=== PATIENT | male | born 1945 | race Caucasian/White ===

== ENCOUNTER 2020-03-04 02:10 | Inpatient (IN) | payer OTHER ==
[2020-03-04] VITALS (8 sets, daily range): BP systolic 120–151; BP diastolic 75–93
[~2020-03-04] VITALS: Ht 180.3 cm; Wt 89.0 kg
[~2020-03-04 02:10] MED LIST: ASPIRIN CHILDRE81 MG PO; COREG6.25 MG PO; GLUCOPHAGE500 MG PO; LISINOPRIL5 MG PO; NO DAILY MEDS; PRINIVIL2.5 MG PO
[2020-03-04 03:30] LABS: HEMATOCRIT 46.1 % (42.0-52.0); LYMPH # 0.5 10*3/uL (1.3-4.4); LYMPH % 7.3 % (27.0-41.0); MEAN CELL VOLUME 87.6 fl (80.0-94.0); MEAN CORPUSCULAR HGB CONC 34.3 g/dl (33.0-37.0); MEAN PLATELET VOLUME 9.5 fl (9.6-12.3); MONO # 0.4 10*3/uL (0.1-1.0); MONO % 6.8 % (3.0-9.0); NEUT # 5.3 10*3/uL (2.3-7.9); NEUT % 85.6 % (47.0-73.0); PLATELET COUNT AUTOMATED 129 10*3/uL (130-400); RED BLOOD COUNT 5.26 10*6/uL (4.50-5.90); RED CELL DISTRI WIDTH 13.1 % (0-14.5); WHITE BLOOD COUNT 6.2 10*3/uL (4.8-10.8)
[2020-03-04 03:50] LABS: ALBUMIN 3.7 gm/dl (3.1-4.5); CREATININE 1.41 mg/dL (0.70-1.30); POTASSIUM 4.2 mmol/L (3.5-5.1); TOTAL PROTEIN 7.7 gm/dL (6.4-8.2)
[2020-03-04 04:54] LABS: BILIRUBIN Negative (Negative); BLOOD 3+ (Negative); CLARITY Clear (Clear); COLOR Yellow (Yellow); GLUCOSE 3+ (Negative); KETONE 2+ (Negative); LEUKO ESTERASE Negative (Negative); NITRITE Negative (Negative); SPECIFIC GRAVITY >= 1.030 (1.001-1.030)
[2020-03-04 05:09] LABS: BACTERIA 1+
[2020-03-04 09:35] LABS: ABG BASE EXCESS -0.2 mmol/L (-2.0-2.0); ARTERIAL BLOOD GAS PH 7.481 (7.35-7.45)
[2020-03-05] VITALS: BP 128/85
[2020-03-05 05:51] LABS: ALBUMIN 3.3 gm/dl (3.1-4.5); ALKALINE PHOSPHATASE 82 U/L (45-117); BUN 21 mg/dl (7-24); CHLORIDE 101 mmol/L (98-107); CHOLESTEROL 101 mg/dL (<200); CREATININE 1.03 mg/dL (0.70-1.30); HDL CHOLESTEROL 38 mg/dl (40-60); LDH 332 U/L (87-241); LDL CHOLESTEROL 44 mg/dL (9-159); POTASSIUM 4.3 mmol/L (3.5-5.1); SGOT/AST 83 IU/L (3-35); SGPT/ALT 49 U/L (12-78); SODIUM 132 mmol/L (136-145); TOTAL PROTEIN 7.1 gm/dL (6.4-8.2); TRIGLYCERIDES 96 mg/dl (<150); VLDL CHOLESTEROL 19 mg/dL (6-40)
[2020-03-05 06:03] LABS: CPK 2414 U/L (39-308)
[2020-03-05 06:08] LABS: LYMPH # 0.6 10*3/uL (1.3-4.4); LYMPH % 10.8 % (27.0-41.0); MEAN CELL VOLUME 88.7 fl (80.0-94.0); MEAN CORPUSCULAR HGB 30.2 pg (27.0-31.0); MEAN CORPUSCULAR HGB CONC 34.1 g/dl (33.0-37.0); MEAN PLATELET VOLUME 9.5 fl (9.6-12.3); MONO # 0.4 10*3/uL (0.1-1.0); MONO % 7.3 % (3.0-9.0); NEUT # 4.6 10*3/uL (2.3-7.9); NEUT % 81.5 % (47.0-73.0); PLATELET COUNT AUTOMATED 130 10*3/uL (130-400); RED BLOOD COUNT 4.96 10*6/uL (4.50-5.90); RED CELL DISTRI WIDTH 13.2 % (0-14.5); WHITE BLOOD COUNT 5.6 10*3/uL (4.8-10.8)
[2020-03-05 07:06] LABS: VITAMIN D, 25-HYDROXY 49.3 ng/mL (30-100)
[2020-03-05 07:07] LABS: FERRITIN 382.4 ng/mL (22.0-322.0)
[2020-03-05 08:00] VITALS: BP 153/80
[2020-03-05 16:00] VITALS: BP 142/73
[2020-03-05 20:00] VITALS: BP 145/89
[2020-03-06] VITALS: BP 146/82
[2020-03-06 03:08] LABS: ABG BASE EXCESS 0.6 mmol/L (-2.0-2.0); ARTERIAL BLOOD GAS PH 7.509 (7.35-7.45)
[2020-03-06 06:30] LABS: HEMATOCRIT 41.5 % (42.0-52.0); MEAN CORPUSCULAR HGB 30.2 pg (27.0-31.0); MEAN CORPUSCULAR HGB CONC 34.7 g/dl (33.0-37.0); MEAN PLATELET VOLUME 9.9 fl (9.6-12.3); PLATELET COUNT AUTOMATED 146 10*3/uL (130-400); RED BLOOD COUNT 4.77 10*6/uL (4.50-5.90); RED CELL DISTRI WIDTH 13.1 % (0-14.5)
[2020-03-06 06:44] LABS: ALKALINE PHOSPHATASE 89 U/L (45-117); ATYPICAL LYMPHS 1 % (0-0); BUN 20 mg/dl (7-24); CHLORIDE 102 mmol/L (98-107); CREATININE 0.95 mg/dL (0.70-1.30); LDH 331 U/L (87-241); PLASMA CELL 1 % (0-0); POTASSIUM 3.9 mmol/L (3.5-5.1); SGOT/AST 85 IU/L (3-35); SGPT/ALT 71 U/L (12-78); SODIUM 134 mmol/L (136-145); TOTAL CELLS COUNTED 100 #CELLS; TOTAL PROTEIN 6.9 gm/dL (6.4-8.2)
[2020-03-06 06:45] LABS: PLATELET SUFFICIENCY NORMAL (NORMAL)
[2020-03-06 06:50] LABS: BURR CELLS FEW
[2020-03-06 06:56] LABS: CPK 1198 U/L (39-308)
[2020-03-06 08:00] VITALS: BP 141/87
[2020-03-06 12:00] VITALS: BP 131/77
[2020-03-06 16:00] VITALS: BP 152/87
[2020-03-06 21:28] VITALS: BP 148/83
[2020-03-07 01:19] VITALS: BP 135/88
[2020-03-07 06:09] LABS: HEMATOCRIT 43.7 % (42.0-52.0); MEAN CELL VOLUME 86.5 fl (80.0-94.0); MEAN CORPUSCULAR HGB 29.7 pg (27.0-31.0); MEAN CORPUSCULAR HGB CONC 34.3 g/dl (33.0-37.0); MEAN PLATELET VOLUME 10.2 fl (9.6-12.3); PLATELET COUNT AUTOMATED 157 10*3/uL (130-400); RED BLOOD COUNT 5.05 10*6/uL (4.50-5.90); RED CELL DISTRI WIDTH 13.1 % (0-14.5); WHITE BLOOD COUNT 5.7 10*3/uL (4.8-10.8)
[2020-03-07 06:11] LABS: ALBUMIN 2.9 gm/dl (3.1-4.5); ALKALINE PHOSPHATASE 102 U/L (45-117); BUN 20 mg/dl (7-24); CHLORIDE 103 mmol/L (98-107); CREATININE 0.91 mg/dL (0.70-1.30); LDH 334 U/L (87-241); POTASSIUM 4.2 mmol/L (3.5-5.1); SGOT/AST 67 IU/L (3-35); SGPT/ALT 86 U/L (12-78); SODIUM 136 mmol/L (136-145); TOTAL PROTEIN 6.9 gm/dL (6.4-8.2)
[2020-03-07 06:12] LABS: CPK 565 U/L (39-308)
[2020-03-07 06:58] LABS: ATYPICAL LYMPHS 3 % (0-0); BURR CELLS FEW; PLATELET SUFFICIENCY NORMAL (NORMAL); SCHISTOCYTES FEW; TOTAL CELLS COUNTED 100 #CELLS
[2020-03-07 08:00] VITALS: BP 134/77
[2020-03-07 12:00] VITALS: BP 103/82
[2020-03-07 16:00] VITALS: BP 124/79
[2020-03-07 20:00] VITALS: BP 132/78; BP 145/98
[2020-03-08] VITALS: BP 117/78
[2020-03-08 07:44] LABS: BUN 22 mg/dl (7-24); CREATININE 0.87 mg/dL (0.70-1.30)
[2020-03-08 07:44] LABS: HEMATOCRIT 43.7 % (42.0-52.0); MEAN CELL VOLUME 87.9 fl (80.0-94.0); MEAN CORPUSCULAR HGB CONC 34.1 g/dl (33.0-37.0); MEAN PLATELET VOLUME 10.8 fl (9.6-12.3); RED BLOOD COUNT 4.97 10*6/uL (4.50-5.90); RED CELL DISTRI WIDTH 13.2 % (0-14.5); WHITE BLOOD COUNT 6.1 10*3/uL (4.8-10.8)
[2020-03-08 07:52] LABS: PLATELET COUNT AUTOMATED 210 10*3/uL (130-400)
[2020-03-08 08:00] VITALS: BP 136/55
[2020-03-08 08:32] LABS: ATYPICAL LYMPHS 3 % (0-0); PLATELET SUFFICIENCY NORMAL (NORMAL); TOTAL CELLS COUNTED 100 #CELLS
[2020-03-08 12:00] VITALS: BP 138/84
[2020-03-08 16:00] VITALS: BP 136/74
[2020-03-08 20:00] VITALS: BP 130/94
[2020-03-09] VITALS: BP 143/93
[2020-03-09 07:03] LABS: HEMATOCRIT 45.2 % (42.0-52.0); MEAN CELL VOLUME 86.3 fl (80.0-94.0); MEAN CORPUSCULAR HGB 29.6 pg (27.0-31.0); MEAN CORPUSCULAR HGB CONC 34.3 g/dl (33.0-37.0); MEAN PLATELET VOLUME 10.6 fl (9.6-12.3); PLATELET COUNT AUTOMATED 245 10*3/uL (130-400); RED BLOOD COUNT 5.24 10*6/uL (4.50-5.90); WHITE BLOOD COUNT 7.4 10*3/uL (4.8-10.8)
[2020-03-09 07:33] LABS: ATYPICAL LYMPHS 2 % (0-0); PLATELET SUFFICIENCY NORMAL (NORMAL); TOTAL CELLS COUNTED 100 #CELLS
[2020-03-09 07:39] LABS: ALKALINE PHOSPHATASE 113 U/L (45-117); BUN 20 mg/dl (7-24); CHLORIDE 103 mmol/L (98-107); LDH 312 U/L (87-241); POTASSIUM 4.4 mmol/L (3.5-5.1); SGOT/AST 58 IU/L (3-35); SGPT/ALT 135 U/L (12-78); SODIUM 136 mmol/L (136-145)
[2020-03-09 08:00] VITALS: BP 126/80
[2020-03-09 12:00] VITALS: BP 117/82
[2020-03-09 16:00] VITALS: BP 134/80
[2020-03-09 20:00] VITALS: BP 119/67
[2020-03-10] VITALS: BP 122/79
[2020-03-10 06:29] LABS: BASO % 0.1 % (0.0-1.0); EOS % 0.2 % (1.0-4.0); HEMATOCRIT 43.7 % (42.0-52.0); LYMPH # 1.8 10*3/uL (1.3-4.4); LYMPH % 21.2 % (27.0-41.0); MEAN CELL VOLUME 87.2 fl (80.0-94.0); MEAN CORPUSCULAR HGB 29.9 pg (27.0-31.0); MEAN CORPUSCULAR HGB CONC 34.3 g/dl (33.0-37.0); MEAN PLATELET VOLUME 9.9 fl (9.6-12.3); MONO # 0.6 10*3/uL (0.1-1.0); MONO % 6.8 % (3.0-9.0); NEUT # 5.9 10*3/uL (2.3-7.9); PLATELET COUNT AUTOMATED 276 10*3/uL (130-400); RED BLOOD COUNT 5.01 10*6/uL (4.50-5.90); RED CELL DISTRI WIDTH 13.1 % (0-14.5); WHITE BLOOD COUNT 8.4 10*3/uL (4.8-10.8)
[2020-03-10 07:06] LABS: ALKALINE PHOSPHATASE 111 U/L (45-117); BUN 22 mg/dl (7-24); CHLORIDE 100 mmol/L (98-107); CREATININE 0.96 mg/dL (0.70-1.30); LDH 266 U/L (87-241); POTASSIUM 3.9 mmol/L (3.5-5.1); SGOT/AST 48 IU/L (3-35); SGPT/ALT 146 U/L (12-78); SODIUM 135 mmol/L (136-145)
[2020-03-10 08:00] VITALS: BP 132/88
[2020-03-10 12:00] VITALS: BP 124/87; BP 126/88
[2020-03-10 16:00] VITALS: BP 133/53
[2020-03-10 20:00] VITALS: BP 123/74; BP 135/67
[2020-03-11] VITALS: BP 121/88
[2020-03-11 06:13] LABS: BASO % 0.1 % (0.0-1.0); EOS % 0.5 % (1.0-4.0); HEMATOCRIT 43.3 % (42.0-52.0); LYMPH # 1.5 10*3/uL (1.3-4.4); LYMPH % 19.3 % (27.0-41.0); MEAN CELL VOLUME 86.8 fl (80.0-94.0); MEAN CORPUSCULAR HGB 29.9 pg (27.0-31.0); MEAN CORPUSCULAR HGB CONC 34.4 g/dl (33.0-37.0); MEAN PLATELET VOLUME 9.9 fl (9.6-12.3); MONO # 0.6 10*3/uL (0.1-1.0); MONO % 7.9 % (3.0-9.0); NEUT # 5.4 10*3/uL (2.3-7.9); PLATELET COUNT AUTOMATED 277 10*3/uL (130-400); RED BLOOD COUNT 4.99 10*6/uL (4.50-5.90); RED CELL DISTRI WIDTH 13.1 % (0-14.5); WHITE BLOOD COUNT 7.6 10*3/uL (4.8-10.8)
[2020-03-11 06:31] LABS: ALBUMIN 2.9 gm/dl (3.1-4.5); BUN 24 mg/dl (7-24); CHLORIDE 103 mmol/L (98-107); POTASSIUM 4.4 mmol/L (3.5-5.1); SODIUM 135 mmol/L (136-145)
[2020-03-11 06:35] LABS: ALKALINE PHOSPHATASE 108 U/L (45-117); SGOT/AST 36 IU/L (3-35); SGPT/ALT 131 U/L (12-78)
[2020-03-11 08:00] VITALS: BP 116/72
[2020-03-11 12:00] VITALS: BP 110/53
[2020-03-11 16:00] VITALS: BP 106/63
[2020-03-11 20:00] VITALS: BP 103/79
[2020-03-12] VITALS: BP 132/83
[2020-03-12 06:15] LABS: BASO % 0.3 % (0.0-1.0); EOS # 0.2 10*3/uL (0.0-0.4); EOS % 2.9 % (1.0-4.0); HEMATOCRIT 45.3 % (42.0-52.0); LYMPH # 1.8 10*3/uL (1.3-4.4); LYMPH % 27.5 % (27.0-41.0); MEAN CORPUSCULAR HGB 29.9 pg (27.0-31.0); MEAN PLATELET VOLUME 10.2 fl (9.6-12.3); MONO # 0.6 10*3/uL (0.1-1.0); MONO % 9.3 % (3.0-9.0); NEUT # 3.9 10*3/uL (2.3-7.9); NEUT % 58.8 % (47.0-73.0); PLATELET COUNT AUTOMATED 279 10*3/uL (130-400); RED BLOOD COUNT 5.15 10*6/uL (4.50-5.90); RED CELL DISTRI WIDTH 13.2 % (0-14.5); WHITE BLOOD COUNT 6.7 10*3/uL (4.8-10.8)
[2020-03-12 06:42] LABS: ALKALINE PHOSPHATASE 111 U/L (45-117); BUN 25 mg/dl (7-24); CHLORIDE 101 mmol/L (98-107); CPK 86 U/L (39-308); CREATININE 1.05 mg/dL (0.70-1.30); LDH 249 U/L (87-241); POTASSIUM 4.4 mmol/L (3.5-5.1); SGOT/AST 56 IU/L (3-35); SGPT/ALT 145 U/L (12-78); SODIUM 135 mmol/L (136-145); TOTAL PROTEIN 6.9 gm/dL (6.4-8.2)
[2020-03-12 08:00] VITALS: BP 115/67
[2020-03-12 12:00] VITALS: BP 131/78
[2020-03-12] MEDS ORDERED: CEFTRIAXONE2 G1 IV (13:11)
[2020-03-12] MEDS ORDERED: ATORVASTATIN CA20 M1 PO (13:16)
[2020-03-12] MEDS ORDERED: ASPIRIN ADULT L81 M2 PO (13:16)
[2020-03-12] MEDS ORDERED: METOPROLOL SUCC25 M2 PO (13:16)
[2020-03-12 16:00] VITALS: BP 107/64
[2020-03-12 20:00] VITALS: BP 114/81
[2020-03-13] VITALS: BP 107/77
[2020-03-13 06:30] LABS: CHLORIDE 104 mmol/L (98-107); POTASSIUM 4.4 mmol/L (3.5-5.1); SODIUM 138 mmol/L (136-145)
[2020-03-13 06:37] LABS: ALBUMIN 2.9 gm/dl (3.1-4.5); ALKALINE PHOSPHATASE 110 U/L (45-117); BUN 22 mg/dl (7-24); CREATININE 0.96 mg/dL (0.70-1.30); SGOT/AST 33 IU/L (3-35); SGPT/ALT 118 U/L (12-78); TOTAL PROTEIN 6.9 gm/dL (6.4-8.2)
[2020-03-13 08:00] VITALS: BP 120/76
[2020-03-13 12:00] VITALS: BP 92/62
[2020-03-13 16:00] VITALS: BP 103/67
[2020-03-13 20:00] VITALS: BP 122/74
[2020-03-14] VITALS: BP 112/73
[2020-03-14 08:00] VITALS: BP 111/80; BP 119/51
[2020-03-14 12:00] VITALS: BP 119/70
[2020-03-14 16:00] VITALS: BP 112/67
[2020-03-14 20:00] VITALS: BP 117/87
[2020-03-15] VITALS: BP 117/71
[2020-03-15 06:32] LABS: BASO % 0.2 % (0.0-1.0); EOS # 0.1 10*3/uL (0.0-0.4); EOS % 2.1 % (1.0-4.0); HEMATOCRIT 44.6 % (42.0-52.0); LYMPH # 1.3 10*3/uL (1.3-4.4); LYMPH % 20.5 % (27.0-41.0); MEAN CELL VOLUME 87.6 fl (80.0-94.0); MEAN CORPUSCULAR HGB 30.1 pg (27.0-31.0); MEAN CORPUSCULAR HGB CONC 34.3 g/dl (33.0-37.0); MONO # 0.5 10*3/uL (0.1-1.0); MONO % 8.6 % (3.0-9.0); NEUT # 4.2 10*3/uL (2.3-7.9); NEUT % 68.3 % (47.0-73.0); PLATELET COUNT AUTOMATED 226 10*3/uL (130-400); RED BLOOD COUNT 5.09 10*6/uL (4.50-5.90); WHITE BLOOD COUNT 6.2 10*3/uL (4.8-10.8)
[2020-03-15 06:53] LABS: ALBUMIN 2.9 gm/dl (3.1-4.5); ALKALINE PHOSPHATASE 130 U/L (45-117); BUN 18 mg/dl (7-24); CHLORIDE 101 mmol/L (98-107); CREATININE 1.02 mg/dL (0.70-1.30); POTASSIUM 4.9 mmol/L (3.5-5.1); SGOT/AST 28 IU/L (3-35); SGPT/ALT 87 U/L (12-78); SODIUM 135 mmol/L (136-145); TOTAL PROTEIN 6.9 gm/dL (6.4-8.2)
[2020-03-15 08:00] VITALS: BP 114/78
[2020-03-15 12:00] VITALS: BP 118/73
[2020-03-15 16:00] VITALS: BP 121/97
[2020-03-15 20:00] VITALS: BP 116/86
[2020-03-16] VITALS: BP 97/59
[2020-03-16 07:24] LABS: BASO % 0.2 % (0.0-1.0); EOS # 0.1 10*3/uL (0.0-0.4); EOS % 1.9 % (1.0-4.0); HEMATOCRIT 45.7 % (42.0-52.0); LYMPH # 1.4 10*3/uL (1.3-4.4); LYMPH % 28.2 % (27.0-41.0); MEAN CELL VOLUME 89.3 fl (80.0-94.0); MEAN CORPUSCULAR HGB 30.1 pg (27.0-31.0); MEAN CORPUSCULAR HGB CONC 33.7 g/dl (33.0-37.0); MONO # 0.4 10*3/uL (0.1-1.0); MONO % 8.7 % (3.0-9.0); NEUT # 2.9 10*3/uL (2.3-7.9); NEUT % 60.6 % (47.0-73.0); PLATELET COUNT AUTOMATED 231 10*3/uL (130-400); RED BLOOD COUNT 5.12 10*6/uL (4.50-5.90); RED CELL DISTRI WIDTH 13.3 % (0-14.5); WHITE BLOOD COUNT 4.8 10*3/uL (4.8-10.8)
[2020-03-16 07:30] LABS: BUN 19 mg/dl (7-24); CHLORIDE 101 mmol/L (98-107); CREATININE 1.03 mg/dL (0.70-1.30); POTASSIUM 4.3 mmol/L (3.5-5.1); SGOT/AST 45 IU/L (3-35); SGPT/ALT 106 U/L (12-78); SODIUM 136 mmol/L (136-145)
[2020-03-16 07:32] LABS: ALKALINE PHOSPHATASE 143 U/L (45-117)
[2020-03-16 08:00] VITALS: BP 106/77
[2020-03-16 12:00] VITALS: BP 108/79
== END 2020-03-16 15:59 | disposition short-term general hospital (02) | DRG 871 ==
LOC: ED 02:10 → 4E 06:24 → EDHOLD 06:24 → 4E 11:58
PROVIDERS: Emergency Medicine; Internal Medicine; Internal Medicine Critical Care Medicine; Student in an Organized Health Care Education/Training Program; ADMIT Internal Medicine; ATTEND Internal Medicine
PROC: 02HV33Z Insertion of Infusion Device into Superior Vena Cava, Percutaneous Approach (ICD-10-PCS; principal; 2020-03-12)
DX: A41.89 Other specified sepsis (principal); N17.0 Acute kidney failure with tubular necrosis; I33.0 Acute and subacute infective endocarditis; U07.1 COVID-19; J12.89 Other viral pneumonia; E87.3 Alkalosis; E87.2 Acidosis; E87.1 Hypo-osmolality and hyponatremia; E44.0 Moderate protein-calorie malnutrition; I24.8 Other forms of acute ischemic heart disease; D68.59 Other primary thrombophilia; E11.65 Type 2 diabetes mellitus with hyperglycemia; D69.6 Thrombocytopenia, unspecified; D72.810 Lymphocytopenia; E87.8 Other disorders of electrolyte and fluid balance, not elsewhere classified; R74.01 Elevation of levels of liver transaminase levels; R31.9 Hematuria, unspecified; E83.41 Hypermagnesemia; R65.20 Severe sepsis without septic shock; E66.9 Obesity, unspecified; I08.3 Combined rheumatic disorders of mitral, aortic and tricuspid valves; E83.39 Other disorders of phosphorus metabolism; Z68.29 Body mass index [BMI] 29.0-29.9, adult